=== PATIENT | male | born 1970 ===

== ENCOUNTER 2017-04-21 02:14 | Emergency (ER) | payer SELFPAY | END 2017-04-21 02:38 | disposition left against medical advice (07) | LOC: EDBD → ED 02:14 | DX: Z02.89 Encounter for other administrative examinations (principal); T14.90XA Injury, unspecified, initial encounter ==

== ENCOUNTER 2017-04-21 02:43 | Emergency (ER) | payer OTHER ==
[2017-04-21 03:25] VITALS: TEMP 98.2; O2SAT 97
[2017-04-21] MEDS ORDERED: Oxycodone/Acetaminophen 5/325 mg Tab PO STA (03:34)
--- NOTE | 2017-04-21 04:00 | ED PDOC ---
Arrival/HPI - General Chief Complaint: Finger,Hand,&Wrist Time Seen by Provider: 04/21/17 03:28 Historian: Patient - History of Present Illness Narrative History of Present Illness (Text): 04/21/17 03:58 A 47 year old male, whose past medical history includes diabetes (on Insulin), presents to the emergency department complaining of left thumb pain that developed about four hours ago s/p injury while at work. 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 Reports he checks his blood sugar, normal blood sugar levels. Patient denies any other complaints at this time. Symptom Onset: Sudden Symptom Course: Unchanged Activities at Onset: Light Context: Work Past Medical History - Provider Review Nursing Documentation Reviewed: Yes - Endocrine/Metabolic Hx Diabetes Mellitus Type 2: Yes - Psychiatric Hx Substance Use: No Family/Social History - Physician Review Nursing Documentation Reviewed: Yes Family/Social History: No Known Family HX Smoking Status: Never Smoked Hx Alcohol Use: No Hx Substance Use: No Allergies/Home Meds Allergies/Adverse Reactions: Allergies No Known Allergies Allergy (Verified 04/21/17 03:21) Home Medications: Home Meds Medication Instructions Recorded Confirmed Unobtainable 04/21/17 04/21/17 Review of Systems - Physician Review All systems were reviewed & negative as marked: Yes - Review of Systems Constitutional: absent: Fevers Musculoskeletal: Other (left thumb pain) Physical Exam Vital Signs Reviewed: Yes Vital Signs Temp Pulse Resp BP Pulse Ox 04/21/17 06:10 65 17 133/97 H 97 04/21/17 03:21 98.2 F 82 18 150/108 H 97 Temperature: Afebrile Blood Pressure: Hypertensive Pulse: Regular Respiratory Rate: Normal Appearance: Positive for: Well-Appearing, Non-Toxic, Comfortable Pain Distress: None Mental Status: Positive for: Alert and Oriented X 3 - Systems Exam Head: Present: Atraumatic, Normocephalic Pupils: Present: PERRL Extroacular Muscles: Present: EOMI Conjunctiva: Present: Normal Mouth: Present: Moist Mucous Membranes Neck: Present: Normal Range of Motion Respiratory/Chest: Present: Clear to Auscultation, Good Air Exchange. No: Respiratory Distress, Accessory Muscle Use Cardiovascular: Present: Regular Rate and Rhythm, Normal S1, S2. No: Murmurs Abdomen: Present: Normal Bowel Sounds. No: Tenderness, Distention, Peritoneal Signs Back: Present: Normal Inspection Upper Extremity: Present: Other (left thumb subungual hematoma; left thumb soft tissue swelling to interphalangial joint) Lower Extremity: Present: Normal Inspection. No: Edema Neurological: Present: GCS=15, CN II-XII Intact, Speech Normal Skin: Present: Warm, Dry, Normal Color. No: Rashes Psychiatric: Present: Alert, Oriented x 3, Normal Insight, Normal Concentration Medical Decision Making ED Course and Treatment: 04/21/17 03:56 Impression: A 47 year old male with left thumb pain. Plan: -- Zofran -- Percocet -- Radiology hand left thumb -- Reassess and disposition Progress Notes: 04/21/17 04:29 Radiology of left thumb- no fracture or dislocation as read by me. - Lab Interpretations Lab Results: 04/21/17 05:33 04/21/17 05:33 Lab Results 04/21/17 06:21: POC Glucose (mg/dL) 385 H 04/21/17 05:33: Sodium 137, Potassium 4.2, Chloride 98, Carbon Dioxide 28, Anion Gap 15, BUN 23 H, Creatinine 0.9, Est GFR ( Amer) > 60, Est GFR ( Non-Af Amer) > 60, Random Glucose 567 H*, Calcium 10.0, Total Bilirubin 0.6, AST 39, ALT 94 H, Alkaline Phosphatase 92, Total Protein 7.7, Albumin 4.5, Globulin 3.2, Albumin/Globulin Ratio 1.4 04/21/17 05:33: WBC 8.0, RBC 5.02, Hgb 15.1, Hct 42.2, MCV 84.1, MCH 30.1, MCHC 35.8, RDW 11.8, Plt Count 208, MPV 11.4 H, Gran % 61.3, Lymph % (Auto) 32.4, [place] % (Auto) 5.8, Eos % (Auto) 0.4 L, Baso % (Auto) 0.1, Gran # 4.88, Lymph # ( Auto) 2.6, [place] # (Auto) 0.5, Eos # (Auto) 0.0, Baso # (Auto) 0.01 - RAD Interpretation Radiology Orders: 04/21/17 03:50 HAND LEFT THUMB [RAD] Stat - Medication Orders Current Medication Orders: Discontinued Medications Sodium Chloride (Sodium Chloride 0.9%) 1,000 mls @ 999 mls/hr IV .Q1H1M STA Stop: 04/21/17 05:26 Last Admin: 04/21/17 05:38 Dose: 999 mls/hr eMAR Start Stop Document 04/21/17 05:38 (Rec: 04/21/17 05:39 [id number] Intravenous Solution Start Date 04/21/17 Start Time 05:38 Insulin Human Regular (Humulin R) 10 units IVP ONCE ONE Stop: 04/21/17 04:28 Last Admin: 04/21/17 05:37 Dose: 10 units IVP Administration Document 04/21/17 05:37 (Rec: 04/21/17 05:37 [id number] Charges for Administration # of IVP Administrations 1 Ondansetron HCl (Zofran Odt) 8 mg PO STAT STA Stop: 04/21/17 03:35 Last Admin: 04/21/17 03:58 Dose: 8 mg Oxycodone/Acetaminophen (Percocet 5/325 Mg Tab) 2 tab PO STAT STA Stop: 04/21/17 03:35 Last Admin: 04/21/17 03:58 Dose: 2 tab [facility] Pain Assessment Document 04/21/17 03:58 (Rec: 04/21/17 04:00 [email or web address]) Pain Reassessment Is this a pain reassessment? Yes Sleep Is patient sleeping during reassessment? No Presence of Pain Presence of Pain Yes Pain Scale Used Pain Scale Used Numeric Location Left, Right or Bilateral Left Pain Location Body Site Thumb Description Description Constant Intensity of Pain at present 7 Aggravating Factors Contant Re-Assess: MAR Pain Assessment Document 04/21/17 04:58 (Rec: 04/21/17 05:39 [id number] Pain Reassessment Is this a pain reassessment? Yes Presence of Pain Presence of Pain No - PA / [employer] / Resident Statement MD/DO has reviewed & agrees with the documentation as recorded. - Scribe Statement The provider has reviewed the documentation as recorded by the Gopi Celaya Provider Scribe Attestation: All medical record entries made by the Scribe were at my direction and personally dictated by me. I have reviewed the chart and agree that the record accurately reflects my personal performance of the history, physical exam, medical decision making, and the department course for this patient. I have also personally directed, reviewed, and agree with the discharge instructions and disposition. Disposition/Present on Arrival - Present on Arrival Any Indicators Present on Arrival: No History of DVT/PE: No History of Uncontrolled Diabetes: No Urinary Catheter: No History of Decub. Ulcer: No History Surgical Site Infection Following: None - Disposition Have Diagnosis and Disposition been Completed?: Yes Diagnosis: Subungual hematoma of digit of hand, Uncontrolled diabetes mellitus, Noncompliance with diabetes treatment Disposition: HOME/ ROUTINE Disposition Time: 06:29 Patient Plan: Discharge Condition: GOOD Discharge Instructions (ExitCare): Common Finger Injuries (DC) Additional Instructions: Take your insulin Forms: [facility] ([place])
[2017-04-21] MEDS ORDERED: Sodium Chloride 0.9% 1,000 ML IV STA (04:26)
[2017-04-21] MEDS ORDERED: Insulin Regular 1 UNITS/0.01 ML ML IVP ONE (04:27)
[2017-04-21 05:58] LABS: BASO # 0.01 K/mm3 (0.0-2.0); BASO % 0.1 % (0.0-3.0); EOS % 0.4 % (1.5-5.0); GRAN # 4.88 (1.4-6.5); GRAN % 61.3 % (50.0-68.0); HEMOGLOBIN 15.1 g/dL (14.0-18.0); LYMPH # 2.6 (1.2-3.4); LYMPH % 32.4 % (22.0-35.0); MEAN CELL VOLUME 84.1 fl (80.0-105.0); MEAN CORPUSCULAR HEMOGLOBIN 30.1 pg (25.0-35.0); MEAN CORPUSCULAR HGB CONC 35.8 g/dl (31.0-37.0); MEAN PLATELET VOLUME 11.4 fl (7.0-11.0); MONO # 0.5 (0.1-0.6); MONO % 5.8 % (1.0-6.0); RBC 5.02 10^6/uL (3.5-6.1); RED CELL DISTRIBUTION WIDTH 11.8 % (11.5-14.5)
[2017-04-21 06:13] LABS: ALB/GLOB RATIO 1.4 (1.1-1.8); ALBUMIN 4.5 g/dL (3.0-4.8); ALT/SGPT 94 U/L (7-56); AST/SGOT 39 U/L (17-59); BLOOD UREA NITROGEN 23 mg/dL (7-21); GFR AFRICAN-AMERICAN > 60; GFR NON-AFRICAN AMERICAN > 60
[2017-04-21] MEDS ORDERED: Insulin Regular 1 UNITS/0.01 ML ML SC ONE (06:28)
[2017-04-21 07:07] VITALS: BP 132/97; PULSE 64; RESP 18
--- NOTE | 2017-04-21 08:18 | RAD ---
PROCEDURE: Left Thumb radiographs. HISTORY: crush injury, subungual hematoma COMPARISON: None. TECHNIQUE: AP radiograph of the left hand, as well as spot oblique and lateral images of thumb were obtained. FINDINGS: LEFT THUMB: Normal left thumb, without fracture or focal lesion. Remainder of the left hand (as seen on the AP view) grossly unremarkable. JOINTS: Normal. SOFT TISSUES: Normal. OTHER FINDINGS: None. IMPRESSION: Normal left thumb radiographs.
== END 2017-04-21 06:55 | disposition home or self-care (01) ==
LOC: ED 02:43
DX: S60.012A Contusion of left thumb without damage to nail, initial encounter (principal); W23.0XXA Caught, crushed, jammed, or pinched between moving objects, initial encounter; Y99.0 Civilian activity done for income or pay; E11.65 Type 2 diabetes mellitus with hyperglycemia; Z91.19 Patient's noncompliance with other medical treatment and regimen
CPT/HCPCS: 73140; 80053; 82948; 85025; 96361; 96374; 99284; J7040